=== PATIENT | male | born 1995 | race Two or more races ===

== ENCOUNTER 2019-08-26 04:17 | Emergency (ER) | payer MEDICAID, OTHER ==
[~2019-08-26] VITALS: Ht 165.1 cm; Wt 81.6 kg
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
--- NOTE | 2019-08-26 04:29 | NUR ---
Denies KO & Multiple lacerations noted.
--- NOTE | 2019-08-26 05:24 | NUR ---
CHERYL OJEDA AND AT BEDSIDE FOR WOUND CARE
--- NOTE | 2019-08-26 06:06 | NUR ---
BROUGHT TO CT
--- NOTE | 2019-08-26 06:09 | NUR ---
PT RETURNED FROM CT
--- NOTE | 2019-08-26 06:11 | NUR ---
BACK FROM CT
--- NOTE | 2019-08-26 07:13 | NUR ---
Patient discharged to home in stable condition. Written and verbal after care instructions given. Patient verbalizes understanding of instruction.Pt ambulatory with a steady gait
[2019-08-26 07:14] VITALS: BP 137/84
== END 2019-08-26 07:14 | disposition home or self-care (01) ==
LOC: ER 04:18
DX: S00.81XA Abrasion of other part of head, initial encounter (principal); R40.4 Transient alteration of awareness; Y08.89XA Assault by other specified means, initial encounter; Y93.89 Activity, other specified; Y92.89 Other specified places as the place of occurrence of the external cause; Y99.8 Other external cause status
CPT/HCPCS: 70450; 99284; A4649; A6403